=== PATIENT | male | born 1990 ===

== ENCOUNTER 2017-10-21 00:49 | Emergency (ER) | payer OTHER ==
[2017-10-21 00:56] VITALS: BP 111/91
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
[2017-10-21] MEDS ORDERED: Amoxicillin/Clavulanate TAB* 500 MG PO ONE (02:36)
== END 2017-10-21 02:48 | disposition home or self-care (01) ==
LOC: ED 00:49
DX: S09.90XA Unspecified injury of head, initial encounter (principal); S80.212A Abrasion, left knee, initial encounter; S80.211A Abrasion, right knee, initial encounter; S60.512A Abrasion of left hand, initial encounter; Y04.0XXA Assault by unarmed brawl or fight, initial encounter; Y92.9 Unspecified place or not applicable
CPT/HCPCS: 99282; A9270-GY